=== PATIENT | female | born 1960 | race Caucasian/White ===

== ENCOUNTER → 2016-04-15 | Outpatient (CLI) | payer BC ==
[~2016-04-15] MED LIST: LORTAB 5/500 501 TAB PO; NAPROSYN500 MG PO; NO HOME MEDICATIONS; PERCOCET 325 MG1 TA2 PO; RT ADVAIR HFA 1112 G IH; RT SPIRIVA18 MCG IH; VALIUM 5MG T5 MG/TAB PO; ZOFRAN 4MG T4 MG/TAB PO
== END ==
LOC: MC.RAD 07:58
DX: Z12.31 Encounter for screening mammogram for malignant neoplasm of breast (principal)

== ENCOUNTER 2016-11-13 08:20 | Day surgery (SDC) | payer BC ==
[~2016-11-13] VITALS: Ht 175.3 cm; Wt 76.2 kg
[~2016-11-13 08:20] MED LIST changes: -RT ADVAIR HFA 1112 G IH
[2016-11-13 08:49] VITALS: BP 130/97; PULSE 102; TEMP 98.9
[2016-11-13] MEDS ORDERED: RT ADVAIR HFA 1112 G IH (08:57)
[2016-11-13 10:22] VITALS: BP 133/86; PULSE 99; TEMP 97.7
[2016-11-13 10:37] VITALS: BP 130/88; PULSE 90
[2016-11-13 10:52] VITALS: BP 126/88; PULSE 88
[2016-11-13 11:07] VITALS: BP 122/76; PULSE 95
== END 2016-11-13 11:33 | disposition home or self-care (01) ==
LOC: SDCO 08:20
DX: Z12.11 Encounter for screening for malignant neoplasm of colon (principal); D12.2 Benign neoplasm of ascending colon; D12.5 Benign neoplasm of sigmoid colon; D12.8 Benign neoplasm of rectum; Z90.710 Acquired absence of both cervix and uterus
CPT/HCPCS: OP; J2250; J3010; J7030

== ENCOUNTER → 2017-10-21 | Outpatient (CLI) | payer OTHER ==
[~2017-10-21] MED LIST changes: +RT ADVAIR HFA 1112 G IH
== END ==
LOC: MC.RAD 07:52
DX: Z12.31 Encounter for screening mammogram for malignant neoplasm of breast (principal)

== ENCOUNTER → 2018-10-31 | Outpatient (CLI) | payer OTHER | LOC: MC.RAD 13:38 | DX: Z12.31 Encounter for screening mammogram for malignant neoplasm of breast (principal) ==

== ENCOUNTER → 2019-11-02 | Outpatient (CLI) | payer OTHER | LOC: MC.RAD 15:37 | DX: Z12.31 Encounter for screening mammogram for malignant neoplasm of breast (principal) ==

== ENCOUNTER 2020-02-13 06:55 | Day surgery (SDC) | payer OTHER ==
[2020-02-13] VITALS (9 sets, daily range): BP systolic 128–150; BP diastolic 68–93; PULSE 86–100; TEMP 97.6–98.3
[~2020-02-13] VITALS: Ht 175.3 cm; Wt 90.3 kg
[2020-02-13] MEDS ORDERED: RT ADVAIR HFA 1112 G IH (08:12)
[2020-02-13] MEDS ORDERED: CEFTIN 250250 MG/TAB PO (08:13)
[2020-02-13] MEDS ORDERED: VESICARE10 MG PO (08:13)
[2020-02-13] MEDS ORDERED: DULCOLAX STOOL100 MG PO (08:14)
[2020-02-13] MEDS ORDERED: NORCO 325 MG-51 TAB PO (12:45)
[2020-02-13] MEDS ORDERED: COLACE 100100 MG/CAP PO (12:45)
--- NOTE | 2020-02-13 13:00 | NUR ---
Report received from post op RN, Shayy Espinoza. Pt to go to room 222 for post robatic sacroclpexy recovery.
--- NOTE | 2020-02-13 14:00 | NUR ---
PATIENT TO RM 222 AT 1310. [address] IN [address] WITH CLEAR, PALE YELLOW URINE. 18 G IV TO RIGHT WRIST WITH LR RUNNING. SCD'S ON. 5 LAP SITES TO ABDOMEN, SECURED WITH GLUE, NO DRAINAGE NOTED. VS WNL. PT REPORTS MILD PAIN TO "WHERE HOWELL IS." AT BEDSIDE.
--- NOTE | 2020-02-13 14:03 | NUR ---
POC UPDATED WITH PATIENT AND .
--- NOTE | 2020-02-13 14:04 | NUR ---
DR. RICHARDSON, HOSPITALIST AT PATIENT'S BEDSIDE FOR CONSULT DUE TO COPD AND HIGH BLOOD PRESSURE.
--- NOTE | 2020-02-13 14:34 | NUR ---
SCHEDULED PAIN MEDS GIVEN. UPDATED ON POC. REPORTS MILD PAIN. AT BEDSIDE.
--- NOTE | 2020-02-13 14:51 | NUR ---
left vm for Dr. Merchant RN re: when romero can be discontinued
--- NOTE | 2020-02-13 15:30 | NUR ---
CALL FROM DR. ORTA RN. HOWELL CAN BE DISCONTINUED IN THE MORNING.
--- NOTE | 2020-02-13 16:30 | NUR ---
Patient resting comfortably. at bedside.
[2020-02-14 07:23] LABS: BASO % 0.2 % (0.0-2.0); EOS % 0.1 % (0-4.0); GRAN # 10.5 (1.4-6.5); GRAN % 80.1 % (42.2-75.2); HEMOGLOBIN 12.2 g/dl (12.5-16.0); LYMPH # 1.6 (1.2-3.4); LYMPH % 12.2 % (20.0-51.0); MEAN CELL VOLUME 94 fl (80.0-100.0); MEAN CORPUSCULAR HEMOGLOBIN 32 pg (27.0-31.0); MEAN CORPUSCULAR HGB CONC 34 g/dl (33.0-37.0); MEAN PLATELET VOLUME 8.4 fl (7.4-10.4); MONO # 0.9 (0.1-0.6); MONO % 7.1 % (1.7-9.3); PLATELET COUNT 342 K/mm3 (130-400); RED BLOOD COUNT 3.83 M/mm3 (4.10-5.30); REDCELL DISTRIBUTION WIDTH-CV 12.5 % (11.5-14.5)
[2020-02-14 07:25] LABS: HEMATOCRIT 35.9 % (37.0-47.0)
[2020-02-14 07:32] LABS: CALCIUM 8.5 mg/dL (8.4-10.2); POTASSIUM 4.4 mmol/L (3.4-5.0)
[2020-02-14 07:41] LABS: CREATININE, serum 0.67 (0.52-1.25)
[2020-02-14 07:45] VITALS: BP 120/62; PULSE 87; TEMP 98.6
--- NOTE | 2020-02-14 09:12 | NUR ---
Initial visit; Patient thanked Kier Hand for looking in on her and offering God's blessings.
== END 2020-02-14 13:30 | disposition home or self-care (01) ==
LOC: OB 06:55 → SDCO 06:55 → OB 13:10 → SDCO 02-14 13:30
PROVIDERS: Urology
DX: N99.3 Prolapse of vaginal vault after hysterectomy (principal); I97.3 Postprocedural hypertension; J44.9 Chronic obstructive pulmonary disease, unspecified; R35.1 Nocturia; R35.0 Frequency of micturition; N39.46 Mixed incontinence; Z20.828 Contact with and (suspected) exposure to other viral communicable diseases; M17.0 Bilateral primary osteoarthritis of knee; M16.0 Bilateral primary osteoarthritis of hip; Z79.899 Other long term (current) drug therapy; Z87.891 Personal history of nicotine dependence; Z88.1 Allergy status to other antibiotic agents; Z88.2 Allergy status to sulfonamides; Z79.01 Long term (current) use of anticoagulants; Z85.828 Personal history of other malignant neoplasm of skin; Z96.651 Presence of right artificial knee joint
CPT/HCPCS: OP; 99204; A4314; A9284; C1781; J0360; J1100; J1650; J1885; J2250; J2405; J2704; J3010; J7120

== ENCOUNTER → 2020-11-25 | Outpatient (CLI) | payer OTHER ==
[~2020-11-25] MED LIST changes: +CEFTIN 250250 MG/TAB PO; +COLACE 100100 MG/CAP PO; +DULCOLAX STOOL100 MG PO; +NORCO 325 MG-51 TAB PO; +VESICARE10 MG PO
== END ==
LOC: MC.RAD 14:04
DX: Z12.31 Encounter for screening mammogram for malignant neoplasm of breast (principal)

== ENCOUNTER → 2021-12-04 | Outpatient (CLI) | payer OTHER | LOC: MC.RAD 09:09 | DX: Z12.31 Encounter for screening mammogram for malignant neoplasm of breast (principal) ==

== ENCOUNTER → 2023-01-07 | Outpatient (CLI) | payer OTHER | LOC: MC.RAD 09:02 | DX: Z12.31 Encounter for screening mammogram for malignant neoplasm of breast (principal) ==

== ENCOUNTER → 2023-06-02 | Outpatient (CLI) | payer OTHER | LOC: COL.RAD 13:45 | DX: N30.20 Other chronic cystitis without hematuria (principal) ==

== ENCOUNTER → 2024-01-18 | Outpatient (CLI) | payer OTHER | LOC: MC.RAD 10:48 | DX: Z12.31 Encounter for screening mammogram for malignant neoplasm of breast (principal) ==